=== PATIENT | male | born 1965 | race Caucasian/White ===

== ENCOUNTER → 2016-11-22 | Day surgery (SDC) | payer BC ==
[2016-11-17 08:52] VITALS: Ht 172.7 cm; Wt 77.3 kg
[~2016-11-22] VITALS: Ht 172.7 cm; Wt 77.3 kg
[~2016-11-22] MED LIST: ASPCH81X PO; ESCI10TA17 PO; MULT-506 PO; SIMV20TA2 PO; SODIUM CHLORIDE 0.9% 500ML 500 ML IV ONE
--- NOTE | 2016-11-22 11:13 | Endo History and Physical ---
History & Physical Date of Service: Nov 22, 2016. Chief Complaint: Colon screening Referring Physician: Dr. Peterson Dominguez History of Present Illness 51 yo CM who presents for screening colonoscopy. Past Medical History High Cholesterol Past Surgical History Hx Cardiac Surgery: No Hx Internal Defibrillator: No Hx Pacemaker: No Hx Abdominal Surgery: No Hx of Implantable Prosthesis: No Hx Post-Op Nausea and Vomiting: No Hx Cancer Surgery: No Hx Thoracic Surgery: No Hx Orthopedic: No Hx Urinary Tract Surgery: No Family History None Social History Smoking Status: Never Smoker Hx Substance Use: No Hx Alcohol Use: Yes (OCCASIONALLY) Allergies Coded Allergies: No Known Allergies (Verified , 11/22/16) Current Medications Reported Home Medications Medications Dose Route/Sig Max Daily Dose Days Date Category Multivitamin (Multivitamins) Tab 1 Tab PO QAM 11/17/16 Reported Lexapro (Escitalopram Oxalate) 10 Mg Tab 10 Mg PO QAM 11/17/16 Reported Zocor (Simvastatin) 20 Mg Tab 20 Mg PO QPM 11/17/16 Reported Aspirin Chewable (Aspirin) 81 Mg Chew 81 Mg PO QAM 11/17/16 Reported Vital Signs Weight (Kilograms): 77.27 Height (Feet): 5 Height (Inches): 8 Date Time Temp Pulse Resp B/P (MAP) Pulse Ox O2 Delivery O2 Flow Rate FiO2 11/22/16 11:10 36.2 77 20 134/80 (98) 97 Room Air Physical Exam General Appearance: WD/WN, no apparent distress Respiratory/Chest: Auscultation: breath sounds normal Cardiovascular: Heart Auscultation: RRR Abdomen: Bowel Sounds: normal Inspection & Palpation: soft, non-distended, no tenderness, guarding & rebound Assessment and Plan Assessment: 51 yo CM who presents for screening colonoscopy. Plan: Proceed with colonoscopy.
--- NOTE | 2016-11-22 12:12 | Anesthesiology Progress Note ---
Anesthesia Post Op Note Date & Time Nov 22, 2016 at 12:12 Vital Signs Pain Intensity: 0 Vital Signs Past 12 Hours Date Time Temp Pulse Resp B/P (MAP) Pulse Ox O2 Delivery O2 Flow Rate FiO2 11/22/16 11:10 36.2 77 20 134/80 (98) 97 Room Air Notes Mental Status: alert / awake / arousable, participated in evaluation Pt Amnestic to Procedure: Yes Nausea / Vomiting: adequately controlled Pain: adequately controlled Airway Patency, RR, SpO2: stable & adequate BP & HR: stable & adequate Hydration State: stable & adequate Anesthetic Complications: no major complications apparent
--- NOTE | 2016-11-22 12:13 | GI REPORT ---
Procedure Date: 11/22/2016 11:35 AM Procedure: Colonoscopy Indications: Screening for colorectal malignant neoplasm Medicines: Monitored Anesthesia Care Complications: No immediate complications. Estimated Blood Loss: Estimated blood loss: none. Procedure: Pre-Anesthesia Assessment: - Prior to the procedure, a History and Physical was performed, and patient medications and allergies were reviewed. The patient's tolerance of previous anesthesia was also reviewed. The risks and benefits of the procedure and the sedation options and risks were discussed with the patient. All questions were answered, and informed consent was obtained. Prior Anticoagulants: The patient has taken aspirin, last dose was 1 day prior to procedure. ASA Grade Assessment: I - A normal, healthy patient. After reviewing the risks and benefits, the patient was deemed in satisfactory condition to undergo the procedure. After I obtained informed consent, the scope was passed under direct vision. Throughout the procedure, the patient's blood pressure, pulse, and oxygen saturations were monitored continuously. The On-site loaner was introduced through the anus with the intention of advancing to the ileum. The scope was advanced to the sigmoid colon before the procedure was aborted. Medications were given. The colonoscopy was unusually difficult due to unsatisfactory bowel prep. The patient tolerated the procedure well. The quality of the bowel preparation was unsatisfactory. No anatomical landmarks were photographed. Findings: A large amount of solid stool was found in the rectum and in the sigmoid colon, precluding visualization. Impression: - Preparation of the colon was unsatisfactory. - Stool in the rectum and in the sigmoid colon. - No specimens collected. Recommendation: - Resume previous diet. - Continue present medications. - Repeat colonoscopy in 3 months because the bowel preparation was poor. - Return to primary care physician as previously scheduled. Ziggy Quiroz DO 11/22/2016 12:12:47 PM This report has been signed electronically. Note Initiated On: 11/22/2016 11:35 AM I attest to the content of the Intraoperative Record and orders documented therein, exceptions below
--- NOTE | 2016-11-22 12:23 | Discharge Instructions ---
Endoscopy Patient Instructions Date / Procedure(s) Performed Nov 22, 2016. Colonoscopy Allergy Information Coded Allergies: No Known Allergies (Verified , 11/22/16) Discharge Date / Findings Nov 22, 2016. Poor bowel prep Medication Instructions Stopped Medication(s): Patient was told to not take his mvi or aspirin. OK to resume all medications today as prescribed Reported Home Medications Medications Dose Route/Sig Max Daily Dose Days Date Category Multivitamin (Multivitamins) Tab 1 Tab PO QAM 11/17/16 Reported Lexapro (Escitalopram Oxalate) 10 Mg Tab 10 Mg PO QAM 11/17/16 Reported Zocor (Simvastatin) 20 Mg Tab 20 Mg PO QPM 11/17/16 Reported Aspirin Chewable (Aspirin) 81 Mg Chew 81 Mg PO QAM 11/17/16 Reported Provider Instructions Activity Restrictions - No exercising or heavy lifting for 24 hours. - Do not drink alcohol the day of the procedure. - Do not drive a car or operate machinery until the day after the procedure. - Do not make any important decisions or sign important papers in 24 hours after the procedure. Following Day: - Return to full activity which may include returning to work/school. Diet Start your diet with liquids and light foods (jello, soup, juice, toast). Then eat your usual diet if not nauseated. Treatment For Common After Affects For mild abdominal pain, bloating, or excessive gas: - Rest - Eat lightly - Lie on right side Follow-Up Information Follow-up with Dr. Peterson Dominguez as scheduled Anesthesia Information What You Should Know You have had a procedure that required some medicine to reduce anxiety and discomfort. This treatment is called moderate sedation. After receiving the treatment, you may be sleepy, but you will be able to breathe on your own. The effects of the treatment may last for several hours. Follow these instructions along with Activity/Diet recommendations noted above: * Do NOT do anything where dizziness or clumsiness would be dangerous. * Rest quietly at home today, then you can be up and about tomorrow. * Have a responsible person stay with you the rest of today. * You may have had an I.V. today. If so, you may take the dressing off later today. Recommendations Call your doctor if: * Trouble breathing * Continuous vomiting for more than 24 hours * Temperature above 101 degrees * Severe abdominal pain or bloating * Pain not relieved by pain medicine ordered * There is increased drainage or redness from any incision * A large amount of rectal bleeding greater than 2-3 tablespoons. (If you had a polyp/s removed or have hemorrhoids, a small amount of blood - from the rectum is to be expected.) * You have any unanswered questions or concerns. IN THE EVENT OF A SERIOUS EMERGENCY, GO TO THE NEAREST EMERGENCY ROOM Your discharge instructions were prepared by provider Ziggy Quiroz. Patient Instructions Signature Page Chase Gunter Patient (or Guardian) Signature/Date: I have read and understand the instructions given to me by my caregivers. Caregiver/RN/Doctor Signature/Date: The above-named patient and/or guardian has received patient instructions on this date. + Original Patient Signature Page (only) stays with chart. Please make copy for patient.
[2016-11-22 12:27] VITALS: BP 97/88; PULSE 75; O2SAT 97
== END | disposition home or self-care (01) ==
LOC: C.GI 10:51
PROVIDERS: ATTEND Internal Medicine
DX: Z12.11 Encounter for screening for malignant neoplasm of colon (principal); Z53.09 Procedure and treatment not carried out because of other contraindication; E78.00 Pure hypercholesterolemia, unspecified; Z79.82 Long term (current) use of aspirin; Z68.26 Body mass index [BMI] 26.0-26.9, adult; Z98.818 Other dental procedure status; Z86.711 Personal history of pulmonary embolism

== ENCOUNTER 2017-04-16 02:04 | Emergency (ER) | payer BC ==
[~2017-04-16] VITALS: Ht 172.7 cm; Wt 79.2 kg
[~2017-04-16 02:04] MED LIST changes: -SODIUM CHLORIDE 0.9% 500ML 500 ML IV ONE
[2017-04-16 02:09] VITALS: TEMP 36.5; Ht 172.7 cm; Wt 79.2 kg
[2017-04-16] MEDS ORDERED: CIPR250T3 PO (02:29)
[2017-04-16 03:01] LABS: BASO % 0.1 %; BASO ABS # 0.01 K/uL (0-0.2); COMPLETE YES; EOS % 0.5 %; IG% 0.2 %; LYMPH % 14.6 %; LYMPH ABS # 1.89 K/uL (1.2-3.4); MEAN CORPUSCULAR HEMOGLOBIN 30.8 pg (25-34); MEAN PLATELET VOLUME 10.4 fL (7.4-10.4); MONO % 3.6 %; PLATELET COUNT 198 K/uL (130-400); WHITE BLOOD COUNT 12.93 K/uL (4.8-10.8)
[2017-04-16 03:02] LABS: URINE APPEARANCE CLEAR (CLEAR); URINE BILIRUBIN NEG (NEG); URINE COLOR YELLOW; URINE NITRITE NEG (NEG); URINE SPECIFIC GRAVITY 1.028 (1.000-1.030); UROBILINOGEN NEG (NEG); ZZUR CULT IF INDIC CLEAN CATCH NO
[2017-04-16 03:03] LABS: MANUAL MICROSCOPIC REQUIRED? NO; REVIEW REQ? NO
[2017-04-16 03:26] LABS: BUN/CREATININE RATIO 17.2 (10-20); CALCIUM 8.9 mg/dl (8.5-10.1); CREATININE 1.71 mg/dl (0.60-1.40); POTASSIUM 3.9 mmol/L (3.5-5.1)
[2017-04-16] MEDS ORDERED: SODIUM CHLORIDE 0.9% 1000ML 1,000 ML IV STA (04:32)
[2017-04-16 04:51] VITALS: BP 114/79; PULSE 58; O2SAT 98
[2017-04-16] MEDS ORDERED: TAMSULOSIN HCL 0.4 MG CAP PO ONE (05:00)
[2017-04-16] MEDS ORDERED: TAMS0.4C38 PO (05:14)
[2017-04-16] MEDS ORDERED: OXYC-57 PO (05:14)
--- NOTE | 2017-04-16 05:14 | EMERGENCY ROOM VISIT NOTE ---
History First contact with patient: 02:29 Chief Complaint: FLANK PAIN Stated Complaint: PAIN RT SIDE/ KIDNEY History of Present Illness The patient is a 51 year old male who presents to the Emergency Room with complaints of right flank pain. The patient states that he has had right flank pain with radiation into the groin since this evening. He rates the discomfort a 5/10. He is unable to find a comfortable position. He increased fluid intake without relief. The patient states that he had a similar episode of pain 6 weeks ago. He took ibuprofen and the pain improved. He has had some intermittent, mild pain since then. He has seen his primary care provider and was diagnosed with possible prostatitis and placed on ciprofloxacin, which he began taking a few days ago. The patient denies any urinary symptoms, nausea or vomiting. He denies any history of kidney stones. He denies any rectal pain. Review of Systems A complete 10 point review of systems was reviewed with the patient with pertinent positives and negatives as per history of present illness. All else were negative. Past Medical/Surgical History Medical Problems: (1) DVT (deep venous thrombosis) (2) Dyslipidemia (3) Pulmonary embolism Surgical Problems: (1) Facial fracture (2) H/O wisdom tooth extraction Family History BREAST CANCER GRANDMOTHER CLL FATHER HTN FATHER GRANDFATHER CO GRANDFATHER CO, CABG, PCI FATHER Social History Smoking Status: Never Smoker Marital Status: Housing Status: lives with family Occupation Status: employed Current/Historical Medications Scheduled Aspirin (Aspirin Chewable), 81 MG PO QAM Ciprofloxacin (Cipro), 500 MG PO BID Escitalopram (Lexapro), 10 MG PO QAM Simvastatin (Zocor), 20 MG PO QPM Tamsulosin Hcl (Flomax), 0.4 MG PO DAILY Scheduled PRN Oxycodone/Acetaminophen 5MG/325MG (Percocet 5MG/325MG), 1-2 TABS PO Q6H PRN for Pain Physical Exam Vital Signs Date Time Temp Pulse Resp B/P (MAP) Pulse Ox O2 Delivery O2 Flow Rate FiO2 04/16/17 04:51 58 20 114/79 98 Room Air 04/16/17 03:17 76 20 136/88 98 Room Air 04/16/17 02:09 36.5 90 18 145/101 96 Room Air Physical Exam VITALS: Vitals are noted on the nurse's note and reviewed by myself. Vital signs stable. GENERAL: This is a 51-year-old male, in no acute distress, nondiaphoretic, well- developed well-nourished. HEART: Regular rate and rhythm without murmurs gallops or rubs. LUNGS: Clear to auscultation bilaterally without wheezes, rales or rhonchi. ABDOMEN: Positive bowel sounds x 4. Soft, nontender to palpation. NEURO: Patient was alert and oriented to person place and time. Medical Decision & Procedures ER Provider Diagnostic Interpretation: CT ABDOMEN & PELVIS WITHOUT CONTRAST: Small hiatal hernia. Stomach is mildly distended with ingested material. 4 mm stone in the distal right ureter just proximal to the right UVJ. Mild right hydroureteronephrosis. Additional punctate stone in the superior right kidney. Perinephric and right periureteral stranding. No hydronephrosis or stone on the left. Normal appendix. No bowel obstruction or inflammation. Large amount of stool throughout the colon may represent constipation. Tiny fat containing umbilical hernia. Possible small amount of fluid or fat stranding within the hernia as well. Radiologist: Ed Potts MD Laboratory Results 04/16/17 02:16 Red Blood Count 5.00, Mean Corpuscular Volume 88.0, Mean Corpuscular Hemoglobin 30.8, Mean Corpuscular Hemoglobin Concent 35.0, Mean Platelet Volume 10.4, Neutrophils (%) (Auto) 81.0, Lymphocytes (%) (Auto) 14.6, Monocytes (%) (Auto) 3.6, Eosinophils (%) (Auto) 0.5, Basophils (%) (Auto) 0.1, Neutrophils # (Auto) 10.49, Lymphocytes # (Auto) 1.89, Monocytes # (Auto) 0.46, Eosinophils # (Auto) 0.06, Basophils # (Auto) 0.01 04/16/17 02:16 Test 04/16/17 02:16 White Blood Count 12.93 K/uL (4.8-10.8) Red Blood Count 5.00 M/uL (4.7-6.1) Hemoglobin 15.4 g/dL (14.0-18.0) Hematocrit 44.0 % (42-52) Mean Corpuscular Volume 88.0 fL (80-100) Mean Corpuscular Hemoglobin 30.8 pg (25-34) Mean Corpuscular Hemoglobin Concent 35.0 g/dl (32-36) Platelet Count 198 K/uL (130-400) Mean Platelet Volume 10.4 fL (7.4-10.4) Neutrophils (%) (Auto) 81.0 % Lymphocytes (%) (Auto) 14.6 % Monocytes (%) (Auto) 3.6 % Eosinophils (%) (Auto) 0.5 % Basophils (%) (Auto) 0.1 % Neutrophils # (Auto) 10.49 K/uL (1.4-6.5) Lymphocytes # (Auto) 1.89 K/uL (1.2-3.4) Monocytes # (Auto) 0.46 K/uL (0.11-0.59) Eosinophils # (Auto) 0.06 K/uL (0-0.5) Basophils # (Auto) 0.01 K/uL (0-0.2) RDW Standard Deviation 42.8 fL (36.4-46.3) RDW Coefficient of Variation 13.4 % (11.5-14.5) Immature Granulocyte % (Auto) 0.2 % Immature Granulocyte # (Auto) 0.02 K/uL (0.00-0.02) Urine Color YELLOW Urine Appearance CLEAR (CLEAR) Urine pH 7.0 (4.5-7.5) Urine Specific [place] 1.028 (1.000-1.030) Urine Protein NEG (NEG) Urine Glucose (UA) NEG (NEG) Urine Ketones TRACE (NEG) Urine Occult Blood TRACE (NEG) Urine Nitrite NEG (NEG) Urine Bilirubin NEG (NEG) Urine Urobilinogen NEG (NEG) Urine Leukocyte Esterase NEG (NEG) Urine WBC (Auto) 1-5 /hpf (0-5) Urine RBC (Auto) 5-10 /hpf (0-4) Urine Hyaline Casts (Auto) 1-5 /lpf (0-5) Urine Epithelial Cells (Auto) 10-20 /lpf (0-5) Urine Bacteria (Auto) NEG (NEG) Anion Gap 8.0 mmol/L (3-11) Est Creatinine Clear Calc Drug Dose 48.9 ml/min Estimated GFR () 52.2 Estimated GFR (Non- 45.0 BUN/Creatinine Ratio 17.2 (10-20) Calcium Level 8.9 mg/dl (8.5-10.1) Total Bilirubin 1.2 mg/dl (0.2-1) Aspartate Amino Transf (AST/SGOT) 28 U/L (15-37) Alanine Aminotransferase (ALT/SGPT) 47 U/L (12-78) Alkaline Phosphatase 78 U/L (45-117) Total Protein 8.3 gm/dl (6.4-8.2) Albumin 4.2 gm/dl (3.4-5.0) Globulin 4.1 gm/dl (2.5-4.0) Albumin/Globulin Ratio 1.0 (0.9-2) Lipase 199 U/L (73-393) Medications Administered Medications (Trade) Dose Ordered Sig/Bradley Route Start Time Stop Time Status Last Admin Dose Admin Sodium Chloride 1,000 ml @ 999 mls/hr Q1H1M STAT IV 04/16/17 04:32 04/16/17 05:32 DC 04/16/17 04:32 999 MLS/HR Tamsulosin HCl (Flomax Cap) 0.4 mg NOW ONCE PO 04/16/17 05:00 04/16/17 05:01 DC 04/16/17 04:49 0.4 MG Medical Decision Differential diagnosis includes kidney stone, pyelonephritis, bowel obstruction , prostatitis, among others. The patient is a and 51-year-old male who presents today complaining of right flank pain with radiation into the groin. Patient has had intermittent symptoms for the past 6 weeks which worsened this evening. CT scan showed a nonobstructing stone in the distal right ureter. Labs revealed a leukocytosis, likely a stress reaction. Creatinine is elevated from baseline at 1.7. This may be secondary to the obstructive process or possibly due to taking ibuprofen and ciprofloxacin at home. Urinalysis was not suggestive of infection. Patient was hydrated with 1 L normal saline solution. He will need to see his PCP for recheck of his creatinine. He was advised to stop the ciprofloxacin and avoid ibuprofen. He will be placed on Flomax and given pain and nausea medication. He was given a urine strainer. Based on the patient's presentation and work up, I feel the patient is stable for outpatient treatment. The patient was educated to return to the emergency department for any worsening of their current condition or new/concerning symptoms. He will follow up with his PCP. Medication Reconcilliation Current Medication List: was personally reviewed by me Blood Pressure Screening Patient's blood pressure: Normal blood pressure Impression Primary Impression: Ureteral calculus, right Departure Information Dispostion Home / Self-Care Condition GOOD Prescriptions Oxycodone/Acetaminophen 5MG/325MG (PERCOCET 5MG/325MG) Tab 1-2 TABS PO Q6H Y for Pain, #15 TAB For Initial Treatment Prov: Daniella Jane PA-C 04/16/17 Tamsulosin Hcl (FLOMAX) 0.4 Mg Cap 0.4 MG PO DAILY for 10 Days, #10 CAP Prov: Daniella Jane PA-C 04/16/17 Referrals Wolf Dominguez DO (PCP) Forms HOME CARE DOCUMENTATION FORM, IMPORTANT VISIT INFORMATION Patient Instructions My [facility] Additional Instructions You have been treated in the Emergency Department today for a Kidney Stone ( Nephrolithiasis). Your kidney function was slightly elevated today. You should stop any anti- inflammatories. You should also stop the ciprofloxacin. You will need for her creatinine rechecked by your primary care provider this week. You have been prescribed Percocet to be used for pain control. This is a narcotic medication. You cannot drive or consume alcohol while on this medicine. This medicine should only be used for pain that cannot be controlled with [id number] pain medicines. You have been prescribed Flomax 0.4 mg to be taken ONCE daily. This medicine has been prescribed as it can help relax the smooth muscles of the urinary tract increasing transit time of the kidney stone. For pain control, you can use the following [id number] medicines (if >12 yo): - Regular strength (325mg/tab) Tylenol (acetaminophen) 2 tabs every 4-6 hours as needed. Do not exceed 12 tablets in a 24 hour period. Avoid taking more than 4 grams (4000 mg) of Tylenol per day. This includes any other sources of acetaminophen you may take on a regular basis. You have been provided a strainer and specimen collection cup. You should strain your urine to collect any passed stones. Your stones can be placed into the specimen cup and taken to your Urologist for further evaluation. Call Dr. Dominguez to schedule a follow up this week. Return to the Emergency Department if your symptoms persist despite the treatment plan outlined above or if you develop the following symptoms: intractable pain, fever, chills, or large amounts of blood in your urine.
--- NOTE | 2017-04-16 09:50 | DIAGNOSTIC IMAGING REPORT ---
CT OF THE ABDOMEN AND PELVIS WITHOUT CONTRAST, STONE PROTOCOL CLINICAL HISTORY: Right flank pain radiating into right groin. COMPARISON STUDY: None. TECHNIQUE: Helical axial images of the abdomen and pelvis were obtained without IV or oral contrast according to renal stone protocol. A dose lowering technique was utilized adhering to the principles of ALARA. FINDINGS: A 4 mm distal right ureteral calculus results in mild right hydroureteronephrosis with moderate periureteral ureteral and mild perinephric infiltration. A 3 mm calcification within the upper pole of the right kidney could reflect a calculus or cortical calcification. Evaluation of the remainder of the abdomen and pelvis is suboptimal on this unenhanced exam. The liver, spleen, adrenal glands and pancreas are unremarkable. There is no evidence for a bowel obstruction. The appendix is normal. Additional pelvic calcifications reflect phleboliths. There are scrotal surgical clips. There is no lymphadenopathy. There are no suspicious osseous lesions. IMPRESSION: 1. 4 mm distal right ureteral calculus which results in mild right hydroureteronephrosis with moderate periureteral and mild perinephric infiltration. 2. 3 mm calcification within the upper pole of the right kidney which could reflect a calculus or cortical calcification. Electronically signed by: Jerome Lomas M.D. 04/16/2017 9:48 AM Dictated Date/Time: 04/16/2017 9:45 AM
== END 2017-04-16 05:20 | disposition home or self-care (01) ==
LOC: C.EDB 02:05 → C.EDA 05:20
DX: N20.1 Calculus of ureter (principal); E78.5 Hyperlipidemia, unspecified; Z86.711 Personal history of pulmonary embolism; Z86.718 Personal history of other venous thrombosis and embolism; Z98.818 Other dental procedure status; Z80.3 Family history of malignant neoplasm of breast; Z80.6 Family history of leukemia; Z82.49 Family history of ischemic heart disease and other diseases of the circulatory system; Z79.899 Other long term (current) drug therapy

== ENCOUNTER 2021-02-04 20:07 | Inpatient (IN) ==
[2021-02-04] MEDS ORDERED: Heparin IV Adult Wt-Based Standard WITH Bolus Protocol IV STA (21:19)
[2021-02-04 21:23] LABS: Basophils # (auto) 0.02 K/uL (0-0.2); Basophils % (auto) 0.3 %; Eosinophils # (auto) 0.21 K/uL (0-0.5); Eosinophils % (auto) 3.3 %; Hematocrit (blood only) 44.4 % (42-52); Hemoglobin 14.9 g/dL (14.0-18.0); Immature Granulocytes # (auto) 0.01 K/uL (0.00-0.02); Immature Granulocytes % (auto) 0.2 %; Lymphocytes # (auto) 2.04 K/uL (1.2-3.4); Lymphocytes % (auto) 32.4 %; Mean Corpuscular Hemoglobin 29.4 pg (25-34); Mean Corpuscular Hgb Conc 33.6 g/dL (32-36); Mean Corpuscular Volume 87.6 fL (80-100); Mean Platelet Volume 9.9 fL (7.4-10.4); Monocytes # (auto) 0.53 K/uL (0.11-0.59); Monocytes % (auto) 8.4 %; Neutrophils # (auto) 3.49 K/uL (1.4-6.5); Neutrophils % (auto) 55.4 %; Platelet Count 242 K/uL (130-400); RDW Coefficient of Variation 13.5 % (11.5-14.5); RDW Standard Deviation 43.5 fL (36.4-46.3); Red Blood Count 5.07 M/uL (4.7-6.1)
[2021-02-04 21:34] LABS: Partial Thromboplastin Ratio 0.9; Partial Thromboplastin Time 23.7 Seconds (21.0-31.0); Prothrombin Time 10.6 Seconds (9.0-12.0)
[2021-02-04] MEDS ORDERED: HEPARIN SOD (PORCINE) 1000 UNIT/ML IV ONE (21:35)
[2021-02-04] MEDS: HEPARIN SODIUM/DEXTROSE 25,000 UNITS/500 ML BAG IV SCH (21:37)
[2021-02-04 21:42] LABS: Blood Urea Nitrogen 20 mg/dl (7-18); Calcium 9.7 mg/dl (8.5-10.1); Carbon Dioxide 27 mmol/L (21-32); Chloride 103 mmol/L (98-107); Creatinine Clr Calc Pharmacy 61.2 ml/min; Est GFR (African American) 73.4 ml/min; Est GFR (Non-African American) 63.3 ml/min; Glucose 111 mg/dl (70-99); Potassium 3.8 mmol/L (3.5-5.1); Sodium 137 mmol/L (136-145)
[2021-02-04 21:47] LABS: Troponin I < 0.015 ng/ml (0-0.045)
--- NOTE | 2021-02-04 23:10 | Emergency Department Note ---
History of Present Illness General Chief complaint: Respiratory Problems Stated complaint: CLOT IN LUNG Time Seen by Provider: 02/04/21 20:44 History of Present Illness Provider complaint: Difficulty breathing abnormal CT scan Onset (ago): day(s) 1 Location: chest Severity: moderate Pain Consistency: + constant Relieved By: + none Exacerbated By: + none Associated symptoms: + shortness of breath; no confusion, no headaches, no na usea/vomiting, no rash or no syncope 55-year-old male presents emergency department for shortness of breath and abnormal CAT scan. Patient states he has been having some shortness of breath so he went to his PCP who ordered an outpatient CAT scan which showed that he has bilateral blood clots in his lungs. Patient states he was instructed to come to the emergency department by his PCP. Patient states that he has a history of blood clots in his legs and in his lungs. Patient is not on any blood thinners except for an aspirin. Home Medications Medication Instructions Recorded Confirmed Type albuterol sulfate 90 mcg/actuation 2 puff INHALATION QID PRN 02/04/21 02/04/21 History aerosol inhaler aspirin 81 mg tablet,delayed 81 mg PO DAILY 02/04/21 02/04/21 History release cholecalciferol (vitamin D3) 125 125 mcg PO DAILY 02/04/21 02/04/21 History mcg (5,000 unit) tablet (Vitamin D3) coenzyme Q10 100 mg capsule 100 mg PO DAILY 02/04/21 02/04/21 History (CoQ-10) escitalopram oxalate 10 mg tablet 10 mg PO DAILY 02/04/21 02/04/21 History fenofibrate 160 mg tablet 160 mg PO DAILY 02/04/21 02/04/21 History multivitamin 1 tab PO DAILY 02/04/21 02/04/21 History simvastatin 20 mg tablet 20 mg PO HS 02/04/21 02/04/21 History turmeric 400 mg capsule 400 mg PO DAILY 02/04/21 02/04/21 History Allergies Allergy/AdvReac Type Severity Reaction Status Date / Time No Known Allergies Allergy Verified 02/04/21 20:43 Past Med/Surg History Medical History (Updated 02/04/21 @ 23:12 by Ti Cotter) DVT (deep venous thrombosis) (12/23/13) HLD (hyperlipidemia) Pulmonary embolism (12/23/13) Surgical History (Updated 02/04/21 @ 23:06 by Ti Cotter) H/O wisdom tooth extraction Family History (Updated 02/04/21 @ 23:07 by Ti Cotter) Other HLD (hyperlipidemia) Social History Smoking Status: Never smoker Preferred Language: Jordanian Feels Safe at Home: Yes Review of Systems A total of 10 systems reviewed and were otherwise negative Physical Exam Vital Signs Vital Signs - 24 hr 02/04/21 20:38 02/04/21 20:52 02/04/21 21:10 Temperature 36.3 C L Temperature Source Temporal Artery Scan Pulse Rate 100 H Pulse Rate [Apical] 105 H Respiratory Rate 22 20 Respiratory Effort / Characteristics Non-Labored Spontaneous Non-Labored Spontaneous Respiratory Depth Normal Respiratory Pattern Regular Blood Pressure 145/96 H Blood Pressure [Right Arm] 135/88 Blood Pressure Mean 112 Blood Pressure Mean [Right Arm] 103 Blood Pressure Position Sitting Pulse Oximetry 96 97 94 Oxygen Delivery Method Room Air Room Air Room Air Sepsis Recent Fever Within 48 Hours No Sepsis New/Unexplained Change in Mental Status N/A Sepsis Action Taken by Nursing No Action Required 02/04/21 22:30 Temperature Temperature Source Pulse Rate Pulse Rate [Apical] 91 H Respiratory Rate 18 Respiratory Effort / Characteristics Non-Labored Spontaneous Respiratory Depth Normal Respiratory Pattern Blood Pressure Blood Pressure [Right Arm] 126/90 Blood Pressure Mean Blood Pressure Mean [Right Arm] 102 Blood Pressure Position Pulse Oximetry 95 Oxygen Delivery Method Room Air Sepsis Recent Fever Within 48 Hours Sepsis New/Unexplained Change in Mental Status Sepsis Action Taken by Nursing Physical Exam GENERAL: He is oriented to person, place, and time. He appears well-developed and well-nourished. He does not appear distressed. HENT: Exam performed. - Head: Normocephalic and atraumatic. - Right Ear: External ear normal. No mastoid tenderness. - Left Ear: External ear normal. No mastoid tenderness. - Mouth/Throat: The oropharynx is clear and moist. No trismus in the jaw. No dental abscesses or uvula swelling. No oropharyngeal exudate or tonsillar abs cesses. EYES: Conjunctivae and EOM are normal. Pupils are equal, round, and reactive to light. Right eye exhibits no discharge. Left eye exhibits no discharge. No scleral icterus. NECK: Normal range of motion. Neck supple. No JVD present. No spinous process tenderness present. No carotid bruit present. No rigidity. No tracheal deviation and normal range of motion present. No Brudzinski's sign and no Kernig's sign noted. CV: Normal rate, regular rhythm, normal heart sounds and intact distal pulses. There is no peripheral edema. Palpable radial pulses bue. PULM/CHEST: Effort normal and breath sounds normal. No respiratory distress. No stridor. He has no wheezes. He has no rales. - Chest Wall: He exhibits no tenderness. ABD: The abdomen is soft. Bowel sounds are normal. He has no distension. No mass is present. There is no tenderness. There is no rebound, no guarding, no Howard's sign and no tenderness at McBurney's point. Rovsig negative. MUSC/SKEL: Normal range of motion. There is no peripheral edema, tenderness or deformity. LYMPH: No cervical adenopathy. NEURO: He is alert and oriented to person, place, and time. He has normal strength. No cranial nerve deficit or sensory deficit. Coordination and gait normal. GCS eye subscore is 4. GCS verbal subscore is 5. GCS motor subscore is 6. Cerebellar tests wnl. SKIN: Skin is warm and dry. He is not diaphoretic. PSYCH: He has a normal mood and affect. Behavior is normal. Judgment and thought content normal. Course Course 2043: The patient was evaluated in room C9. A complete history and physical exam was performed Cardiac monitoring: An order was placed for continuous cardiac monitoring. The monitor shows a rate of 90 with sinus rhythm 2140: Vital signs stable. [facility] medical laboratory manager is able to access the [employer] EMR and provide the CT scan that was done outpatient at [facility] today. There are filling defects visualized in the pulmonary arteries of the right lower lobe, right middle lobe, right upper lobe, left upper lobe, and left lower lobe. No right heart strain. Given the extensive amount of pulmonary emboli and the patient's history of having pulmonary emboli and DVTs in the past the patient will be started on anticoagulation admitted to the [facility] hospitalist team. Dr. Danielson notified. Administered Medications Heparin Sodium/Dextrose (Heparin Sodium/Dextrose) 25,000 units in 500 mls @ 25 mls/hr IV .Q20H [facility]; Protocol Stop: 03/06/21 21:44 Last Admin: 02/04/21 21:37 Dose: 1,250 units/hr, 25 mls/hr Documented by: [id number] Cosigned by: [id number] Discontinued Medications Heparin Sodium (Porcine) (Heparin Sod (Porcine) 1000 Unit/Ml) 1 units IV NOW ONE Stop: 02/04/21 21:36 Last Admin: 02/04/21 21:42 Dose: 6,000 units Documented by: [id number] Cosigned by: [id number] Heparin Sodium/Dextrose (Heparin Iv Adult Wt-Based Standard With Bolus Protocol) 1 ea IV NOW STA; Protocol Stop: 02/04/21 21:20 Last Admin: 02/04/21 21:43 Dose: 1 ea Documented by: [id number] Critical Care Time Critical Care Time: Yes Total Critical Care Time: 56 I have personally spent greater than 56 minutes of critical care time in the direct management of this patient. This includes bedside care, interpretation of diagnostic studies, and testing, discussion with consultants, patient, and family members, and other required patient management activities. This 56 minutes is in excess of all separately billable procedures. Medical Decision Making Laboratory Data Result diagrams: 02/04/21 21:10 02/04/21 21:10 Lab Results 02/04/21 02/04/21 02/04/21 Range/Units 21:10 21:10 21:10 WBC 6.30 (4.8-10.8) K/uL RBC 5.07 (4.7-6.1) M/uL Hgb 14.9 (14.0-18.0) g/dL Hct 44.4 (42-52) % MCV 87.6 (80-100) fL MCH 29.4 (25-34) pg MCHC 33.6 (32-36) g/dL RDW Std Deviation 43.5 (36.4-46.3) fL RDW Coeff of Willie 13.5 (11.5-14.5) % Plt Count 242 (130-400) K/uL MPV 9.9 (7.4-10.4) fL Immature Gran % (Auto) 0.2 % Neut % (Auto) 55.4 % Lymph % (Auto) 32.4 % Grimes % (Auto) 8.4 % Eos % (Auto) 3.3 % Baso % (Auto) 0.3 % Neut # (Auto) 3.49 (1.4-6.5) K/uL Lymph # (Auto) 2.04 (1.2-3.4) K/uL Grimes # (Auto) 0.53 (0.11-0.59) K/uL Eos # (Auto) 0.21 (0-0.5) K/uL Baso # (Auto) 0.02 (0-0.2) K/uL Immature Gran # (Auto) 0.01 (0.00-0.02) K/uL PT 10.6 (9.0-12.0) Seconds INR 1.0 (0.9-1.1) APTT 23.7 (21.0-31.0) Seconds PTT Ratio 0.9 Sodium 137 (136-145) mmol/L Potassium 3.8 (3.5-5.1) mmol/L Chloride 103 (98-107) mmol/L Carbon Dioxide 27 (21-32) mmol/L Anion Gap 7.0 (3-11) BUN 20 H (7-18) mg/dl Creatinine 1.26 (0.6-1.4) mg/dl Est Cr Clr Drug Dosing 61.2 ml/min Est GFR ( Amer) 73.4 ml/min Est GFR (Non-Af Amer) 63.3 ml/min BUN/Creatinine Ratio 16.0 (10-20) Glucose 111 H (70-99) mg/dl Calcium 9.7 (8.5-10.1) mg/dl Troponin I < 0.015 (0-0.045) ng/ml COVID-19 Eval Order 02/04/21 Range/Units 21:40 WBC (4.8-10.8) K/uL RBC (4.7-6.1) M/uL Hgb (14.0-18.0) g/dL Hct (42-52) % MCV (80-100) fL MCH (25-34) pg MCHC (32-36) g/dL RDW Std Deviation (36.4-46.3) fL RDW Coeff of Willie (11.5-14.5) % Plt Count (130-400) K/uL MPV (7.4-10.4) fL Immature Gran % (Auto) % Neut % (Auto) % Lymph % (Auto) % Grimes % (Auto) % Eos % (Auto) % Baso % (Auto) % Neut # (Auto) (1.4-6.5) K/uL Lymph # (Auto) (1.2-3.4) K/uL Grimes # (Auto) (0.11-0.59) K/uL Eos # (Auto) (0-0.5) K/uL Baso # (Auto) (0-0.2) K/uL Immature Gran # (Auto) (0.00-0.02) K/uL PT (9.0-12.0) Seconds INR (0.9-1.1) APTT (21.0-31.0) Seconds PTT Ratio Sodium (136-145) mmol/L Potassium (3.5-5.1) mmol/L Chloride (98-107) mmol/L Carbon Dioxide (21-32) mmol/L Anion Gap (3-11) BUN (7-18) mg/dl Creatinine (0.6-1.4) mg/dl Est Cr Clr Drug Dosing ml/min Est GFR ( Amer) ml/min Est GFR (Non-Af Amer) ml/min BUN/Creatinine Ratio (10-20) Glucose (70-99) mg/dl Calcium (8.5-10.1) mg/dl Troponin I (0-0.045) ng/ml COVID-19 Eval Order Covid19 at [facility] ECG Data Indication: + chest pain Rate (beats per minute): 94 Rhythm: + normal sinus ECG Intervals/blocks: + Normal QRS, + Normal WI and + Normal QT-c ECG ST segments: + Normal ST segments MDM Narrative Vital signs stable. [facility] medical laboratory manager is able to access the [employer] EMR and provide the CT scan that was done outpatient at [facility] today. There are filling defects visualized in the pulmonary arteries of the right lower lobe, right middle lobe, right upper lobe, left upper lobe, and left lower lobe. No right heart strain. Given the extensive amount of pulmonary emboli and the patient's history of having pulmonary emboli and DVTs in the past the patient will be started on anticoagulation admitted to the [facility] hospitalist team. Dr. Danielson notified. Impression & Plan Pulmonary emboli Discharge Plan Visit Data Chief Complaint: Respiratory Problems Stated Complaint: CLOT IN LUNG Discharge Problem: Pulmonary emboli Patient Disposition: Admitted As Inpatient Forms Stand Alone Forms: My [facility] Prescriptions Prescriptions: No Action multivitamin Tablet 1 tab PO DAILY RF: 0 aspirin 81 mg Tablet,Delayed Release (Dr/Ec) 81 mg PO DAILY RF: 0 simvastatin 20 mg tablet 20 mg PO HS RF: 0 albuterol sulfate 90 mcg/actuation HFA aerosol inhaler 2 puff INHALATION QID PRN (Reason: Shortness Of Breath) RF: 0 escitalopram oxalate 10 mg tablet 10 mg PO DAILY RF: 0 coenzyme Q10 [CoQ-10] 100 mg Capsule 100 mg PO DAILY RF: 0 fenofibrate 160 mg tablet 160 mg PO DAILY RF: 0 cholecalciferol (vitamin D3) [Vitamin D3] 125 mcg (5,000 unit) Tablet 125 mcg PO DAILY RF: 0 turmeric 400 mg Capsule 400 mg PO DAILY RF: 0 Referrals Referrals: Jennifer Willett MD [Primary Care Provider] -
--- NOTE | 2021-02-05 03:16 | History and Physical Report ---
DATE OF ADMISSION: 02/05/21 CHIEF COMPLAINT: Shortness of breath, bilateral PE. HISTORY OF PRESENT ILLNESS: This is a 55-year-old male with past medical history significant for allergic rhinitis, chronic sinusitis, hypertension, currently not on any medications, generalized anxiety disorder, was sent in by PCP because of bilateral pulmonary embolism on CAT scan. The patient is changing his doctor, recently on 01/30/2021 he had an appointment with his new PCP first time, and at that time he was also complaining of some shortness of breath on exertion and cough he attributed to his allergies and PCP has given albuterol and ordered some workup from which D-dimer came as high and he was sent for CT of the chest, showing PE in all the lobes of the lungs, but no right heart strain and was sent here. Currently the patient is resting comfortably and hemodynamically stable, saturating fine on room air. Denies any chest pain. Still has some cough, no headache, no blurred visions, no earache, no runny nose, no sore throat, no dysphagia, no nausea, no abdominal pain, normal bowel and bladder movements. Denies any blood in stools or black stools, no hematuria, no swelling in the legs. [place] The patient says he had DVT and PE 7 years ago and was on Xarelto for 6 months, it was unprovoked. No family history of blood clots. ALLERGIES: No known drug allergies. PAST MEDICAL HISTORY: As mentioned above. PAST SURGICAL HISTORY: Dental surgery, vasectomy, repair of fractured cheek. MEDICATIONS: The patient is on albuterol 2 puffs inhalation q.i.d. p.r.n., aspirin 81 mg p.o. daily, vitamin D 125 mcg p.o. daily, coenzyme Q10 100 mg p.o. daily, Lexapro 10 mg p.o. daily, fenofibrate 160 mg p.o. daily, multivitamin one tablet p.o. daily, simvastatin 20 mg p.o. at bedtime, turmeric 1.4 mg p.o. daily. FAMILY HISTORY: Significant for father has heart disease. SOCIAL HISTORY: , no smoking. Alcohol occasionally. No drug use. REVIEW OF SYSTEMS: As per HPI. Rest of review of systems is negative. PHYSICAL EXAMINATION: GENERAL: The patient is of moderate build, not in acute distress. VITAL SIGNS: Temperature 36.3, pulse 89, respiratory rate 18, blood pressure 125/87, oxygen 94% on room air. HEENT: Pupils equal, round and reactive to light. Oral mucosa moist. NECK: No JVD, no neck masses. CARDIOVASCULAR: S1 and S2 heard. Regular rate and rhythm. No murmur, no gallop. RESPIRATORY SYSTEM: Normal AP diameter. No accessory muscle use. No wheezing, no crackles. ABDOMEN: Soft, positive bowel sounds present, nontender, no distention. CENTRAL NERVOUS SYSTEM: Cranial nerves II-XII are grossly intact, nonfocal. EXTREMITIES: No edema, no erythema. LABORATORY DATA: WBC 6.3, hemoglobin 14.9, hematocrit 44.4, platelets 242. PT 10.6, INR 1, APTT 23.7. Sodium 137, potassium 3.8, chloride 103, bicarbonate 27, BUN 20, creatinine 1.2, serum glucose 111, calcium 9.7. Troponin I less than 0.015. SARS-CoV-2 PCR negative. EKG: Normal sinus rhythm, rate of 94, no significant change was found. ASSESSMENT AND PLAN: This is a 55-year-old male, presents with shortness of breath, was found to have bilateral PE. 1. Bilateral PE, unprovoked. This is the second time; first one was 7 years ago. Was on Xarelto for 6 months. Currently, started on IV heparin. We will follow the echocardiogram and lower extremity Doppler. May need to Follow up with hematology, may need long-term anticoagulation. Monitor in the [place] [facility] [place]. 2. History of hyperlipidemia: Continue statin and fenofibrate. 3. History of generalized anxiety disorder. On Lexapro. 4. Deep venous thrombosis prophylaxis, on IV heparin. DISPOSITION: Monitor in [place] [facility] [place]. Expect to discharge home and follow with family doctor. Job ID: [id number] [facility]
[2021-02-05 04:58] LABS: Partial Thromboplastin Ratio 1.8
[2021-02-05 05:18] LABS: Partial Thromboplastin Time 47.4 Seconds (21.0-31.0)
[2021-02-05] MEDS ORDERED: ALBUTEROL HFA 8 GM INHALER INH PRN (08:37)
[2021-02-05] MEDS ORDERED: ACETAMINOPHEN 325 MG TAB PO PRN (08:37)
[2021-02-05] MEDS ORDERED: NITROGLYCERIN SL 0.4 MG/TAB TAB SL PRN (08:37)
[2021-02-05] MEDS ORDERED: POLYETHYLENE (MIRALAX) 17 GM PACK PO PRN (08:37)
[2021-02-05] MEDS ORDERED: SODIUM CHLORIDE 0.9% 1000ML 1,000 ML IV SCH (08:37)
[2021-02-05] MEDS ORDERED: ONDANSETRON INJ 2 MG/ML 2 ML VIAL IV PRN (08:37)
[2021-02-05 09:53] LABS: Basophils # (auto) 0.03 K/uL (0-0.2); Basophils % (auto) 0.5 %; Eosinophils # (auto) 0.24 K/uL (0-0.5); Eosinophils % (auto) 3.6 %; Hemoglobin 15.2 g/dL (14.0-18.0); Immature Granulocytes # (auto) 0.01 K/uL (0.00-0.02); Immature Granulocytes % (auto) 0.2 %; Lymphocytes # (auto) 2.45 K/uL (1.2-3.4); Lymphocytes % (auto) 37.2 %; Mean Corpuscular Hemoglobin 29.6 pg (25-34); Mean Corpuscular Hgb Conc 33.8 g/dL (32-36); Mean Corpuscular Volume 87.7 fL (80-100); Monocytes # (auto) 0.49 K/uL (0.11-0.59); Monocytes % (auto) 7.4 %; Neutrophils # (auto) 3.37 K/uL (1.4-6.5); Neutrophils % (auto) 51.1 %; Platelet Count 250 K/uL (130-400); RDW Coefficient of Variation 13.6 % (11.5-14.5); RDW Standard Deviation 43.9 fL (36.4-46.3); Red Blood Count 5.13 M/uL (4.7-6.1); White Blood Count 6.59 K/uL (4.8-10.8)
[2021-02-05] MEDS: MULTIVITAMIN TAB PO SCH (10:05)
[2021-02-05] MEDS: ASPIRIN 81 MG ECTAB PO SCH (10:06)
[2021-02-05] MEDS: CHOLECALCIFEROL 1,000 UNITS 25 MCG TAB PO SCH (10:06)
[2021-02-05] MEDS: ESCITALOPRAM OXALATE 10 MG TAB PO SCH (10:06)
[2021-02-05] MEDS: FENOFIBRATE NANOCRYSTALLIZED 145 MG TABLET PO SCH (10:06)
[2021-02-05 10:18] LABS: BUN Creatinine Ratio 12.8 (10-20); Calcium 9.3 mg/dl (8.5-10.1); Creatinine Clr Calc Pharmacy 63.2 ml/min; Est GFR (African American) 76.3 ml/min; Est GFR (Non-African American) 65.9 ml/min; Magnesium 2.1 mg/dl (1.8-2.4); Potassium 3.9 mmol/L (3.5-5.1)
--- NOTE | 2021-02-05 14:58 | Ultrasound Report ---
BILATERAL LOWER EXTREMITY VENOUS DOPPLER HISTORY: Acute pain and swelling of the lower legs dvt? b/l PE. COMPARISON STUDY: Doppler study 10/30/2014 FINDINGS: There is normal compressibility, flow, and augmentation within the bilateral lower extremit y deep venous systems. IMPRESSION: No DVT within the right or left lower extremity. ACT 112: Negative or not required by law. Electronically signed by: Channing Paula M.D. 02/05/2021 2:56 PM
--- NOTE | 2021-02-05 17:57 | Hospitalist Progress Note ---
Date of Service February 05, 2021 Assessment & Plan (1) Pulmonary emboli: Plan: This is a 55 y/o male, who presents with shortness of breath, was found to have bilateral PE. 1. Bilateral PE, unprovoked. This is the second time; first one was about 7 years ago. Was on Xarelto for 6 months. Currently, started on IV heparin. Echocardiogram - normal LV chamber size and wall thickness. Normal LV systolic function, EF 60 to 65%. No segmental LV wall motion abnormalities are noted. RV cavity size is normal. Normal RV systolic function by TAPSE. No significant valvular pathology. TR jet inadequate to estimate RVSP. Normal inferior vena cava size and collapsibility indicates a normal RA pressure of 3 mmHg. Lower extremity Doppler - negative for DVT Clinically patient is doing well, denies any chest pain, no shortness of breath at rest, some cough with deep inhalation, no hemoptysis Discussed different anticoagulation options, patient is interested in Xarelto as he is familiar with this medication Xarelto Rx sent to his pharmacy, will check pricing before discharge May need to Follow up with hematology, may need long-term anticoagulation. Monitor in the [employer]. 2. History of hyperlipidemia: Continue statin and fenofibrate. 3. History of generalized anxiety disorder. On Lexapro. DVT prophylaxis, on IV heparin. DISPOSITION: Monitor in [employer]. Expect to discharge home and follow with family doctor. Admission and Anticipated Discharge Date Admission Date: February 05, 2021 Subjective Seen in follow-up of bilateral PE Currently sitting up in the chair, in no acute distress, on IV heparin Denies any chest pain, only says that when he takes a deep breath, it makes him cough, denies hemoptysis No significant shortness of breath at rest, was not ambulating much today Review of Systems Review of Systems: All systems reviewed & are unremarkable except as noted in Subjective Physical Exam Physical Exam: GENERAL: The patient is of moderate build, not in acute distress. HEENT: NC/AT, EOMI, PERRL, Oral mucosa moist. NECK: No JVD, no neck masses. CARDIOVASCULAR: S1 and S2 heard. Regular rate and rhythm. No murmur, no gallop. RESPIRATORY: Normal AP diameter. No accessory muscle use. No wheezing, no crackles. ABDOMEN: Soft, positive bowel sounds present, nontender, no distention. NEURO: Alert oriented, answering questions appropriately, no facial asymmetry, speech fluent, moves extremities EXTREMITIES: No edema, no erythema. Results & Data Results & Data ([facility]) Vital Signs (Past 12 Hours) Vital Signs Temp Pulse Pulse Pulse Resp BP BP 02/05/21 15:32 36.8 C 70 20 113/77 02/05/21 11:11 36.6 C 78 18 122/77 02/05/21 08:57 36.9 C 75 125/85 02/05/21 08:06 36.3 C L 74 15 108/75 02/05/21 08:00 74 15 108/75 02/05/21 07:30 73 14 115/79 02/05/21 07:02 74 16 02/05/21 06:30 72 14 118/86 02/05/21 06:00 76 74 14 110/69 110/76 Pulse Ox 02/05/21 15:32 97 02/05/21 11:11 96 02/05/21 08:57 95 02/05/21 08:06 93 02/05/21 08:00 93 02/05/21 07:30 94 02/05/21 07:02 94 02/05/21 06:30 94 02/05/21 06:00 94 Laboratory Results 02/05/21 02/05/21 02/05/21 Range/Units 09:27 09:27 04:18 WBC 6.59 (4.8-10.8) K/uL RBC 5.13 (4.7-6.1) M/uL Hgb 15.2 (14.0-18.0) g/dL Hct 45.0 (42-52) % MCV 87.7 (80-100) fL MCH 29.6 (25-34) pg MCHC 33.8 (32-36) g/dL RDW Std Deviation 43.9 (36.4-46.3) fL RDW Coeff of Willie 13.6 (11.5-14.5) % Plt Count 250 (130-400) K/uL MPV 10.0 (7.4-10.4) fL Immature Gran % (Auto) 0.2 % Neut % (Auto) 51.1 % Lymph % (Auto) 37.2 % [place] % (Auto) 7.4 % Eos % (Auto) 3.6 % Baso % (Auto) 0.5 % Neut # (Auto) 3.37 (1.4-6.5) K/uL Lymph # (Auto) 2.45 (1.2-3.4) K/uL [place] # (Auto) 0.49 (0.11-0.59) K/uL Eos # (Auto) 0.24 (0-0.5) K/uL Baso # (Auto) 0.03 (0-0.2) K/uL Immature Gran # (Auto) 0.01 (0.00-0.02) K/uL PT (9.0-12.0) Seconds INR (0.9-1.1) APTT 47.4 H* (21.0-31.0) Seconds PTT Ratio 1.8 Sodium 137 (136-145) mmol/L Potassium 3.9 (3.5-5.1) mmol/L Chloride 104 (98-107) mmol/L Carbon Dioxide 29 (21-32) mmol/L Anion Gap 4.0 (3-11) BUN 16 (7-18) mg/dl Creatinine 1.22 (0.6-1.4) mg/dl Est Cr Clr Drug Dosing 63.2 ml/min Est GFR ( Amer) 76.3 ml/min Est GFR (Non-Af Amer) 65.9 ml/min BUN/Creatinine Ratio 12.8 (10-20) Glucose 106 H (70-99) mg/dl Calcium 9.3 (8.5-10.1) mg/dl Magnesium 2.1 (1.8-2.4) mg/dl Troponin I (0-0.045) ng/ml COVID-19 Eval Order SARS-CoV-2 (PCR) (Negative) 02/04/21 02/04/21 02/04/21 Range/Units 21:40 21:40 21:10 WBC (4.8-10.8) K/uL RBC (4.7-6.1) M/uL Hgb (14.0-18.0) g/dL Hct (42-52) % MCV (80-100) fL MCH (25-34) pg MCHC (32-36) g/dL RDW Std Deviation (36.4-46.3) fL RDW Coeff of Willie (11.5-14.5) % Plt Count (130-400) K/uL MPV (7.4-10.4) fL Immature Gran % (Auto) % Neut % (Auto) % Lymph % (Auto) % [place] % (Auto) % Eos % (Auto) % Baso % (Auto) % Neut # (Auto) (1.4-6.5) K/uL Lymph # (Auto) (1.2-3.4) K/uL [place] # (Auto) (0.11-0.59) K/uL Eos # (Auto) (0-0.5) K/uL Baso # (Auto) (0-0.2) K/uL Immature Gran # (Auto) (0.00-0.02) K/uL PT (9.0-12.0) Seconds INR (0.9-1.1) APTT (21.0-31.0) Seconds PTT Ratio Sodium 137 (136-145) mmol/L Potassium 3.8 (3.5-5.1) mmol/L Chloride 103 (98-107) mmol/L Carbon Dioxide 27 (21-32) mmol/L Anion Gap 7.0 (3-11) BUN 20 H (7-18) mg/dl Creatinine 1.26 (0.6-1.4) mg/dl Est Cr Clr Drug Dosing 61.2 ml/min Est GFR ( Amer) 73.4 ml/min Est GFR (Non-Af Amer) 63.3 ml/min BUN/Creatinine Ratio 16.0 (10-20) Glucose 111 H (70-99) mg/dl Calcium 9.7 (8.5-10.1) mg/dl Magnesium (1.8-2.4) mg/dl Troponin I < 0.015 (0-0.045) ng/ml COVID-19 Eval Order Covid19 at [facility] SARS-CoV-2 (PCR) NEGATIVE (Negative) 02/04/21 02/04/21 Range/Units 21:10 21:10 WBC 6.30 (4.8-10.8) K/uL RBC 5.07 (4.7-6.1) M/uL Hgb 14.9 (14.0-18.0) g/dL Hct 44.4 (42-52) % MCV 87.6 (80-100) fL MCH 29.4 (25-34) pg MCHC 33.6 (32-36) g/dL RDW Std Deviation 43.5 (36.4-46.3) fL RDW Coeff of Willie 13.5 (11.5-14.5) % Plt Count 242 (130-400) K/uL MPV 9.9 (7.4-10.4) fL Immature Gran % (Auto) 0.2 % Neut % (Auto) 55.4 % Lymph % (Auto) 32.4 % [place] % (Auto) 8.4 % Eos % (Auto) 3.3 % Baso % (Auto) 0.3 % Neut # (Auto) 3.49 (1.4-6.5) K/uL Lymph # (Auto) 2.04 (1.2-3.4) K/uL [place] # (Auto) 0.53 (0.11-0.59) K/uL Eos # (Auto) 0.21 (0-0.5) K/uL Baso # (Auto) 0.02 (0-0.2) K/uL Immature Gran # (Auto) 0.01 (0.00-0.02) K/uL PT 10.6 (9.0-12.0) Seconds INR 1.0 (0.9-1.1) APTT 23.7 (21.0-31.0) Seconds PTT Ratio 0.9 Sodium (136-145) mmol/L Potassium (3.5-5.1) mmol/L Chloride (98-107) mmol/L Carbon Dioxide (21-32) mmol/L Anion Gap (3-11) BUN (7-18) mg/dl Creatinine (0.6-1.4) mg/dl Est Cr Clr Drug Dosing ml/min Est GFR ( Amer) ml/min Est GFR (Non-Af Amer) ml/min BUN/Creatinine Ratio (10-20) Glucose (70-99) mg/dl Calcium (8.5-10.1) mg/dl Magnesium (1.8-2.4) mg/dl Troponin I (0-0.045) ng/ml COVID-19 Eval Order SARS-CoV-2 (PCR) (Negative) Medications Administered Current Inpatient Medications Acetaminophen (Acetaminophen 325 Mg Tab) 650 mg PO Q4H PRN PRN Reason: Pain or Fever Stop: 03/07/21 08:36 Albuterol (Albuterol Hfa 8 Gm Inhaler) 2 puffs INH QID PRN PRN Reason: Shortness Of Breath Stop: 03/07/21 08:36 Aspirin (Aspirin 81 Mg Ectab) 81 mg PO DAILY [facility] Stop: 03/07/21 08:59 Last Admin: 02/05/21 10:06 Dose: 81 mg Documented by: Escitalopram Oxalate (Escitalopram Oxalate 10 Mg Tab) 10 mg PO DAILY [facility] Stop: 03/07/21 08:59 Last Admin: 02/05/21 10:06 Dose: 10 mg Documented by: Fenofibrate (Fenofibrate Nanocrystallized 145 Mg Tablet) 145 mg PO DAILY [facility] Stop: 03/07/21 08:59 Last Admin: 02/05/21 10:06 Dose: 145 mg Documented by: Heparin Sodium/Dextrose (Heparin Sodium/Dextrose) 25,000 units in 500 mls @ 25 mls/hr IV .Q20H [facility]; Protocol Stop: 03/06/21 21:44 Last Admin: 02/04/21 21:37 Dose: 1,250 units/hr, 25 mls/hr Documented by: Sodium Chloride (Nss 1000ml) 1,000 mls @ 100 mls/hr IV .Q10H [facility] Stop: 02/05/21 18:36 Last Admin: 02/05/21 09:10 Dose: 100 mls/hr Documented by: Multivitamins (Multivitamin Tab) 1 tab PO DAILY [facility] Stop: 03/07/21 08:59 Last Admin: 02/05/21 10:05 Dose: 1 tab Documented by: Nitroglycerin (Nitroglycerin Sl 0.4 Mg/Tab Tab) 0.4 mg SL UD PRN PRN Reason: Chest Pain Stop: 03/07/21 08:36 Ondansetron HCl (Ondansetron Inj 2 Mg/Ml 2 Ml Vial) 4 mg IV Q6H PRN PRN Reason: Nausea Stop: 03/07/21 08:36 Polyethylene Glycol (Polyethylene (Miralax) 17 Gm Pack) 17 gm PO DAILY PRN PRN Reason: Constipation Stop: 03/07/21 08:36 Simvastatin (Simvastatin 20 Mg Tab) 20 mg PO HS [facility] Stop: 03/07/21 20:59 Vitamin D (Cholecalciferol 1,000 Units 25 Mcg Tab) 5,000 units PO DAILY [facility] Stop: 03/07/21 08:59 Last Admin: 02/05/21 10:06 Dose: 5,000 units Documented by: (1) Pulmonary emboli Pulmonary embolism type: multiple subsegmental (without acute cor pulmonale) Qualified Code(s): I26.94 - Multiple subsegmental pulmonary emboli without acute cor pulmonale
[2021-02-05] MEDS: HEPARIN SODIUM/DEXTROSE 25,000 UNITS/500 ML BAG IV SCH (18:57)
[2021-02-05] MEDS ORDERED: SIMVASTATIN 20 MG TAB PO SCH (21:00)
--- NOTE | 2021-02-06 06:06 | Electrocardiogram Report ---
Test Reason : Blood Pressure : / mmHG Vent. Rate : 094 BPM Atrial Rate : 094 BPM P-R Int : 160 ms QRS Dur : 092 ms QT Int : 354 ms P-R-T Axes : 052 -02 012 degrees QTc Int : 442 ms Normal sinus rhythm Normal ECG When compared with ECG of 23-DEC-2013 14:06, No significant change was found Confirmed by Abebe Brewer ([id number]) on 02/06/2021 6:05:53 AM Referred By: REFERRED SELF Confirmed By:Abebe Brewer
--- NOTE | 2021-02-06 07:31 | Hospitalist Progress Note ---
Date of Service February 06, 2021 Assessment & Plan (1) Pulmonary emboli: Plan: This is a 55 y/o male, who presents with shortness of breath, was found to have bilateral PE. 1. Bilateral PE, unprovoked. This is the second time; first one was about 7 years ago. Was on Xarelto for 6 months. Currently, started on IV heparin. Echocardiogram - normal LV chamber size and wall thickness. Normal LV systolic function, EF 60 to 65%. No segmental LV wall motion abnormalities are noted. RV cavity size is normal. Normal RV systolic function by TAPSE. No significant valvular pathology. TR jet inadequate to estimate RVSP. Normal inferior vena cava size and collapsibility indicates a normal RA pressure of 3 mmHg. Lower extremity Doppler - negative for DVT Clinically patient is doing well, denies any chest pain, no shortness of breath at rest, some cough with deep inhalation, no hemoptysis Discussed different anticoagulation options, patient is interested in Xarelto as he is familiar with this medication Xarelto Rx sent to his pharmacy, will check pricing before discharge May need to Follow up with hematology, may need long-term anticoagulation. Monitor in the [employer]. 2. History of hyperlipidemia: Continue statin and fenofibrate. 3. History of generalized anxiety disorder. On Lexapro. DVT prophylaxis, on IV heparin. DISPOSITION: Monitor in [employer]. Expect to discharge home and follow with family doctor. Admission and Anticipated Discharge Date Admission Date: February 05, 2021 Subjective Seen in follow-up of bilateral PE Currently sitting up in the chair, in no acute distress, on IV heparin Denies any chest pain, only says that when he takes a deep breath, it makes him cough, denies hemoptysis No significant shortness of breath at rest Review of Systems Review of Systems: All systems reviewed & are unremarkable except as noted in Subjective Physical Exam Physical Exam: GENERAL: The patient is of moderate build, not in acute distress. HEENT: NC/AT, EOMI, PERRL, Oral mucosa moist. NECK: No JVD, no neck masses. CARDIOVASCULAR: S1 and S2 heard. Regular rate and rhythm. No murmur, no gallop. RESPIRATORY: Normal AP diameter. No accessory muscle use. No wheezing, no crackles. ABDOMEN: Soft, positive bowel sounds present, nontender, no distention. NEURO: Alert oriented, answering questions appropriately, no facial asymmetry, speech fluent, moves extremities EXTREMITIES: No edema, no erythema. Results & Data Results & Data ([facility]) Vital Signs (Past 12 Hours) Vital Signs Temp Pulse Pulse Resp BP Pulse Ox 02/06/21 06:00 78 02/06/21 03:00 36.4 C L 65 18 103/66 94 02/05/21 23:04 36.5 C 62 20 113/75 97 Laboratory Results 02/05/21 02/05/21 Range/Units 09:27 09:27 WBC 6.59 (4.8-10.8) K/uL RBC 5.13 (4.7-6.1) M/uL Hgb 15.2 (14.0-18.0) g/dL Hct 45.0 (42-52) % MCV 87.7 (80-100) fL MCH 29.6 (25-34) pg MCHC 33.8 (32-36) g/dL RDW Std Deviation 43.9 (36.4-46.3) fL RDW Coeff of Willie 13.6 (11.5-14.5) % Plt Count 250 (130-400) K/uL MPV 10.0 (7.4-10.4) fL Immature Gran % (Auto) 0.2 % Neut % (Auto) 51.1 % Lymph % (Auto) 37.2 % [place] % (Auto) 7.4 % Eos % (Auto) 3.6 % Baso % (Auto) 0.5 % Neut # (Auto) 3.37 (1.4-6.5) K/uL Lymph # (Auto) 2.45 (1.2-3.4) K/uL [place] # (Auto) 0.49 (0.11-0.59) K/uL Eos # (Auto) 0.24 (0-0.5) K/uL Baso # (Auto) 0.03 (0-0.2) K/uL Immature Gran # (Auto) 0.01 (0.00-0.02) K/uL Sodium 137 (136-145) mmol/L Potassium 3.9 (3.5-5.1) mmol/L Chloride 104 (98-107) mmol/L Carbon Dioxide 29 (21-32) mmol/L Anion Gap 4.0 (3-11) BUN 16 (7-18) mg/dl Creatinine 1.22 (0.6-1.4) mg/dl Est Cr Clr Drug Dosing 63.2 ml/min Est GFR ( Amer) 76.3 ml/min Est GFR (Non-Af Amer) 65.9 ml/min BUN/Creatinine Ratio 12.8 (10-20) Glucose 106 H (70-99) mg/dl Calcium 9.3 (8.5-10.1) mg/dl Magnesium 2.1 (1.8-2.4) mg/dl Medications Administered Current Inpatient Medications Acetaminophen (Acetaminophen 325 Mg Tab) 650 mg PO Q4H PRN PRN Reason: Pain or Fever Stop: 03/07/21 08:36 Last Admin: 02/05/21 22:31 Dose: 650 mg Documented by: Albuterol (Albuterol Hfa 8 Gm Inhaler) 2 puffs INH QID PRN PRN Reason: Shortness Of Breath Stop: 03/07/21 08:36 Aspirin (Aspirin 81 Mg Ectab) 81 mg PO DAILY [facility] Stop: 03/07/21 08:59 Last Admin: 02/05/21 10:06 Dose: 81 mg Documented by: Escitalopram Oxalate (Escitalopram Oxalate 10 Mg Tab) 10 mg PO DAILY [facility] Stop: 03/07/21 08:59 Last Admin: 02/05/21 10:06 Dose: 10 mg Documented by: Fenofibrate (Fenofibrate Nanocrystallized 145 Mg Tablet) 145 mg PO DAILY [facility] Stop: 03/07/21 08:59 Last Admin: 02/05/21 10:06 Dose: 145 mg Documented by: Heparin Sodium/Dextrose (Heparin Sodium/Dextrose) 25,000 units in 500 mls @ 25 mls/hr IV .Q20H [facility]; Protocol Stop: 03/06/21 21:44 Last Titration: 02/06/21 07:15 Dose: 1,250 units/hr, 25 mls/hr Documented by: Multivitamins (Multivitamin Tab) 1 tab PO DAILY [facility] Stop: 03/07/21 08:59 Last Admin: 02/05/21 10:05 Dose: 1 tab Documented by: Nitroglycerin (Nitroglycerin Sl 0.4 Mg/Tab Tab) 0.4 mg SL UD PRN PRN Reason: Chest Pain Stop: 03/07/21 08:36 Ondansetron HCl (Ondansetron Inj 2 Mg/Ml 2 Ml Vial) 4 mg IV Q6H PRN PRN Reason: Nausea Stop: 03/07/21 08:36 Polyethylene Glycol (Polyethylene (Miralax) 17 Gm Pack) 17 gm PO DAILY PRN PRN Reason: Constipation Stop: 03/07/21 08:36 Simvastatin (Simvastatin 20 Mg Tab) 20 mg PO HS [facility] Stop: 03/07/21 20:59 Last Admin: 02/05/21 21:34 Dose: 20 mg Documented by: Vitamin D (Cholecalciferol 1,000 Units 25 Mcg Tab) 5,000 units PO DAILY [facility] Stop: 03/07/21 08:59 Last Admin: 02/05/21 10:06 Dose: 5,000 units Documented by: (1) Pulmonary emboli Pulmonary embolism type: multiple subsegmental (without acute cor pulmonale) Qualified Code(s): I26.94 - Multiple subsegmental pulmonary emboli without acute cor pulmonale
[2021-02-06 07:49] LABS: Hematocrit (blood only) 44.1 % (42-52); Hemoglobin 15.2 g/dL (14.0-18.0); Mean Corpuscular Hgb Conc 34.5 g/dL (32-36); Mean Corpuscular Volume 87.2 fL (80-100); Platelet Count 240 K/uL (130-400); RDW Coefficient of Variation 13.6 % (11.5-14.5); RDW Standard Deviation 43.2 fL (36.4-46.3); Red Blood Count 5.06 M/uL (4.7-6.1); White Blood Count 4.56 K/uL (4.8-10.8)
[2021-02-06 08:01] LABS: Partial Thromboplastin Ratio 1.6; Partial Thromboplastin Time 41.6 Seconds (21.0-31.0)
[2021-02-06 08:21] LABS: BUN Creatinine Ratio 13.3 (10-20); Calcium 9.5 mg/dl (8.5-10.1); Creatinine Clr Calc Pharmacy 64.8 ml/min; Est GFR (African American) 78.7 ml/min; Est GFR (Non-African American) 67.9 ml/min; Magnesium 2.2 mg/dl (1.8-2.4); Potassium 4.2 mmol/L (3.5-5.1)
[2021-02-06 08:22] LABS: Phosphorus 3.4 mg/dl (2.5-4.9)
[2021-02-06] MEDS: ASPIRIN 81 MG ECTAB PO SCH (10:00)
[2021-02-06] MEDS: CHOLECALCIFEROL 1,000 UNITS 25 MCG TAB PO SCH (10:01)
[2021-02-06] MEDS: FENOFIBRATE NANOCRYSTALLIZED 145 MG TABLET PO SCH (10:01)
[2021-02-06] MEDS: ESCITALOPRAM OXALATE 10 MG TAB PO SCH (10:01)
[2021-02-06] MEDS: MULTIVITAMIN TAB PO SCH (10:01)
--- NOTE | 2021-02-06 10:56 | Discharge Summary ---
Date of Service February 06, 2021 Admission HPI Per Admitting Provider This is a 55-year-old male with past medical history significant for allergic rhinitis, chronic sinusitis, hypertension, currently not on any medications, generalized anxiety disorder, was sent in by PCP because of bilateral pulmonary embolism on CAT scan. The patient is changing his doctor, recently on 01/30/2021 he had an appointment with his new PCP first time, and at that time he was also complaining of some shortness of breath on exertion and cough he attributed to his allergies and PCP has given albuterol and ordered some workup from which D-dimer came as high and he was sent for CT of the chest, showing PE in all the lobes of the lungs, but no right heart strain and was sent here. Currently the patient is resting comfortably and hemodynamically stable, saturating fine on room air. Denies any chest pain. Still has some cough, no headache, no blurred visions, no earache, no runny nose, no sore throat, no dysphagia, no nausea, no abdominal pain, normal bowel and bladder movements. Denies any blood in stools or black stools, no hematuria, no swelling in the legs. [place] The patient says he had DVT and PE 7 years ago and was on Xarelto for 6 months, it was unprovoked. No family history of blood clots. Admission Exam Per Admitting Provider GENERAL: The patient is of moderate build, not in acute distress. VITAL SIGNS: Temperature 36.3, pulse 89, respiratory rate 18, blood pressure 125/87, oxygen 94% on room air. HEENT: Pupils equal, round and reactive to light. Oral mucosa moist. NECK: No JVD, no neck masses. CARDIOVASCULAR: S1 and S2 heard. Regular rate and rhythm. No murmur, no gallop. RESPIRATORY SYSTEM: Normal AP diameter. No accessory muscle use. No wheezing, no crackles. ABDOMEN: Soft, positive bowel sounds present, nontender, no distention. CENTRAL NERVOUS SYSTEM: Cranial nerves II-XII are grossly intact, nonfocal. EXTREMITIES: No edema, no erythema. Principal Diagnosis Acute bilateral Pulmonary embolism Discharge Exam GENERAL: The patient is of moderate build, not in acute distress. HEENT: NC/AT, EOMI, PERRL, Oral mucosa moist. NECK: No JVD, no neck masses. CARDIOVASCULAR: S1 and S2 heard. Regular rate and rhythm. No murmur, no gallop. RESPIRATORY: Normal AP diameter. No accessory muscle use. No wheezing, no crackles. ABDOMEN: Soft, positive bowel sounds present, nontender, no distention. NEURO: Alert oriented, answering questions appropriately, no facial asymmetry, speech fluent, moves extremities EXTREMITIES: No edema, no erythema. Discharge Data Allergies Allergy/AdvReac Type Severity Reaction Status Date / Time No Known Allergies Allergy Verified 02/04/21 20:43 Consultations 02/04/21 21:37 ED Decision to Admit Stat Ordered Studies 02/05/21 09:30 US venous doppler LE BI Routine IMPRESSION: No DVT within the right or left lower extremity. Hospital Course (1) Pulmonary emboli: This is a 55 y/o male, who presents with shortness of breath, was found to have bilateral PE. 1. Bilateral PE, unprovoked. This is the second time; first one was about 7 years ago. Was on Xarelto for 6 months. Currently, started on IV heparin. Echocardiogram - normal LV chamber size and wall thickness. Normal LV systolic function, EF 60 to 65%. No segmental LV wall motion abnormalities are noted. RV cavity size is normal. Normal RV systolic function by TAPSE. No significant valvular pathology. TR jet inadequate to estimate RVSP. Normal inferior vena cava size and collapsibility indicates a normal RA pressure of 3 mmHg. Lower extremity Doppler - negative for DVT Clinically patient is doing well, denies any chest pain, no shortness of breath at rest, some cough with deep inhalation, no hemoptysis Discussed different anticoagulation options, patient is interested in Xarelto as he is familiar with this medication Xarelto Rx sent to his pharmacy Start 15 mg bid now May need to Follow up with hematology, may need long-term anticoagulation. Monitor in the [employer]. 2. History of hyperlipidemia: Continue statin and fenofibrate. 3. History of generalized anxiety disorder. On Lexapro. DVT prophylaxis, on IV heparin. DISPOSITION: Monitor in [employer]. Expect to discharge home and follow with family doctor. Total Time Total Time Spent Total Time Spent (In Minutes): 35 Discharge Plan Discharge Items Patient Disposition: Home - Self-Care Reason For Visit: SOB Discharge Diagnosis: Acute bilateral Pulmonary embolism Activity: Per Instructions section Non-emergency contact: Primary Care Provider Call non-emergency contact if: you have any medication questions and your symptoms worsen Follow-up/Referrals: Jennifer Willett MD [Primary Care Provider] - (Date & Time 02/11/2021 10:00 AM Provider Jennifer Willett MD Department General Internal Medicine [facility] ) Diet: Heart Healthy Addtl Attending Provider Instructions: Follow up with your primary care doctor, the appointment was scheduled for you for February 11. Take Xarelto 15 mg twice a day for next 21 days. Then you will need to take Xarelto once a day at different dose, indefinitely. Discuss the length of treatment with your primary care doctor or regulator inspector. Pending Studies at Discharge: No Stand-Alone Forms: My [facility] [employer], Smoking Cessation Medications and DC Order Prescriptions: New Xarelto DVT-PE Treat 30d Start 15 mg (42)- 20 mg (9) tablets,dose pack See Rx Instructions .ROUTE .COMPLEX Qty: 51 RF: 0 Continued multivitamin Tablet 1 tab PO DAILY RF: 0 aspirin 81 mg Tablet,Delayed Release (Dr/Ec) 81 mg PO DAILY RF: 0 simvastatin 20 mg tablet 20 mg PO HS RF: 0 albuterol sulfate 90 mcg/actuation HFA aerosol inhaler 2 puff INHALATION QID PRN (Reason: Shortness Of Breath) RF: 0 escitalopram oxalate 10 mg tablet 10 mg PO DAILY RF: 0 coenzyme Q10 [CoQ-10] 100 mg Capsule 100 mg PO DAILY RF: 0 fenofibrate 160 mg tablet 160 mg PO DAILY RF: 0 cholecalciferol (vitamin D3) [Vitamin D3] 125 mcg (5,000 unit) Tablet 125 mcg PO DAILY RF: 0 turmeric 400 mg Capsule 400 mg PO DAILY RF: 0 Discharge Orders: Discharge Order (Routine); Ordered 02/06/21 Ordered By: Lito Loco Admission Data Admit Date/Time: 02/05/21 01:07 Attending Provider: Lito Loco Admit Provider: Fabián Danielson Primary Care Provider: Jennifer Willett Other Providers: Fabián Danielson
[2021-02-06] MEDS ORDERED: RIVAROXABAN 15 MG TAB PO SCH (11:00)
== END 2021-02-06 12:42 | disposition home or self-care (01) | DRG 176 ==
LOC: ED 20:07 → 2N 02-05 01:07